=== PATIENT | male | born 1990 ===

== ENCOUNTER 2024-11-27 23:11 | Emergency (ER) | payer BC, SELFPAY ==
[2024-11-27 23:25] VITALS: BP 124/81
[2024-11-28] VITALS: BMI 28.3
--- NOTE | 2024-11-28 00:13 | ED.GENMED ---
History of Present Illness
General
Chief Complaint: Skin Surface Trauma
Time Seen by Provider: 11/27/24 23:57
History of Present Illness
History of Present Illness:
34-year-old male presents to the emergency department with a left cheek laceration sustained when he was carrying a space heater at the stairs and it struck him in the face. Bleeding controlled. Last tetanus unknown. No eye symptoms
Review of Systems
Review of Systems
Allergies reviewed?: Yes
All Other Systems: ROS reviewed and negative except as documented in HPI and ROS
Phy Exam
Physical Exam
Physical Exam:
GEN: Well appearing, NAD, WDWN
HEENT: Oral mucosa moist, no scleral icterus. 2 cm linear laceration to the left cheek with no active bleeding, no swelling or ecchymosis, no periorbital swelling or ecchymosis
Cardiac: Regular rate
Lung: No respiratory distress, no tachypnea
MSK: No gross deformity or injuries
Skin: Good color, no pallor or jaundice, no rashes
Neuro: AO x3, moves all extremities freely
Psych: Calm, cooperative
Course
Orders/Labs/Results
Orders:
Orders
11/28/24 00:12
Tetanus/Diphth/Acelpertussis [Adacel] 0.5 ml IM .ONCE ONE
Vital Signs
Initial and Last Documented VS:
Initial Vital Signs
Temp Pulse Resp BP Pulse Ox
98.5 F 66 14 124/81 100
11/27/24 23:25 11/27/24 23:25 11/27/24 23:25 11/27/24 23:25 11/27/24 23:25
Last Documented Vital Signs
Temp Pulse Resp BP Pulse Ox
98.5 F 66 14 124/81 100
11/27/24 23:25 11/27/24 23:25 11/27/24 23:25 11/27/24 23:25 11/27/24 23:25
MDM/Problems Addressed
MDM/Problems Addressed:
Lac repaired with glue, tetanus updated
*Critical Care Note
Total Time (30-74mins, 75-104mins- exclusive of procedures): Not Applicable
ED Attending Note
-
Portions of this chart may have been created with voice recognition software.� Occasional wrong word or��sound alike� substitutions may have occurred due to the inherent limitations of voice recognition software.
Discharge Plan
Departure
Patient Disposition: Home (Routine Discharge)
Date of Disposition: 11/28/24
Time of Disposition: 00:14
Patient with high blood pressure during this ER visit?: No
Discharge Problem:
Facial laceration
Instructions: Laceration Repair With Glue (DC)
Referrals:
NONE,* [Family Provider] -
Interventions
Interventions:
*Risk Screen - Suicide Last Done: 11/27/24 23:25
*General Assessment Last Done: 11/28/24 00:00
*Neglect/Abuse Screening Last Done: 11/28/24 00:00
ED- Fall Risk Assessment Last Done: 11/28/24 00:00
*ED COVID-19 Vaccine History Last Done: 11/28/24 00:00
*Nursing Disposition Last Done: 11/28/24 00:24
ED-Skin Assessment Last Done: 11/28/24 00:00
Discharge Date and Time
Discharge Date/Time: 11/28/24 00:24
Print Language: SINHALA
[2024-11-28] MEDS: ADACEL 0.5 ML IM (00:20)
== END 2024-11-28 00:24 | disposition home or self-care (01) ==
LOC: EMR 23:11
PROVIDERS: EMERGENCY PHYSICIAN Student in an Organized Health Care Education/Training Program
DX: S01.412A Laceration without foreign body of left cheek and temporomandibular area, initial encounter (principal); W22.8XXA Striking against or struck by other objects, initial encounter; Z23 Encounter for immunization
CPT/HCPCS: 99282; 12011; 90471; 90715